=== PATIENT | female | born 1990 | race Caucasian/White ===

== ENCOUNTER 2017-07-30 18:53 | Emergency (ER) | payer SELFPAY ==
[~2017-07-30] VITALS: Wt 115.0 kg
[2017-07-30] MEDS ORDERED: ACETAMINOPHEN 325 MG TAB PO ONE (20:30)
[2017-07-30 20:47] LABS: BASOPHILS % 0.3 % (0.0-2.0); EOSINOPHILS # 0.1 10^3/ul (0.0-0.5); EOSINOPHILS % 0.9 % (0.0-7.0); HEMATOCRIT 34.6 % (37.0-47.0); HEMOGLOBIN 11.3 g/dl (12.0-16.0); LYMPHOCYTES % 15.6 % (15.0-51.0); MEAN CORPUSCULAR HEMOGLOBIN 26.5 pg (29.0-33.0); MEAN CORPUSCULAR HGB CONC 32.7 g/dl (32.0-37.0); MEAN PLATELET VOLUME 10.8 fl (7.4-10.4); MONOCYTE # 0.9 10^3/ul (0.3-0.9); NEUTROPHILS % 75.7 % (39.0-77.0); PLATELET COUNT 305 10^3/UL (140-415); RED BLOOD COUNT 4.27 10^6/ul (4.20-5.40); RED CELL DISTRIBUTION WIDTH 15.3 % (11.5-14.5); WHITE BLOOD COUNT 12.5 10^3/ul (4.8-10.8)
[2017-07-30 21:00] LABS: ADD UMIC YES; UR ASCORBIC ACID NEGATIVE (NEGATIVE); UR BILIRUBIN (Dip) NEGATIVE (NEGATIVE); UR BLOOD (Dip) NEGATIVE (NEGATIVE); UR CLARITY SLIGHTLY CLOUDY (CLEAR); UR COLOR YELLOW (YELLOW); UR GLUCOSE (Dip) NEGATIVE (NEGATIVE); UR KETONES (Dip) NEGATIVE (NEGATIVE); UR LEUKOCYTE ESTERASE (Dip) TRACE Leu/ul (NEGATIVE); UR MUCUS FEW /HPF (NONE SEEN); UR NITRITE (Dip) NEGATIVE (NEGATIVE); UR RBC 2 /HPF (0-5); UR SPECIFIC GRAVITY (Dip) 1.025 (1.003-1.030); UR SQUAMOUS EPITHELIAL CELL MODERATE /HPF (FEW); UR TOTAL PROTEIN (Dip) NEGATIVE (NEGATIVE); UR UROBILINOGEN (Dip) 1+ mg/dL (NEGATIVE)
--- NOTE | 2017-07-30 22:50 | RADRPT ---
PROCEDURE: US OB. CLINICAL INDICATION: 26 years of age, female. Abdominal pain. .. TECHNIQUE: Multiple sonographic images of the pelvis were obtained. Transabdominal imaging only w as performed. The images were reviewed on a PACS workstation. Image quality: Satisfactory. COMPARISON: No prior studies are available for comparison. FINDINGS: Villatoro : Number of fetuses: 1 GENERAL EVALUATION: Cardiac activity: Present. FHR 143 bpm Presentation: Cephalic/a variable Placenta: Placenta site: Posterior. Placenta grade 1. Negative for evidence of placenta previa. Amniotic fluid: Normal. Maximum vertical pocket 5 cm Cervix (transabdominal): Not evaluated DATING: LMP: March 20, 2017 AMINAH by dates: December 25, 2017 EGA by dates: 63-saht-7-day BIOMETRY: BPD = 4.7 cm , 20 weeks 2 days. HC = 16.5 cm , 19 weeks 2 days. AC = 14.8 cm , 20 weeks 1 day. FL = 3.3 cm , 20 weeks 3 days. Composite sonographic age: 20 weeks 0 days plus or minus 2 weeks Estimated due date by ultrasound measurements: December 17, 2017 EFW 336 grams that is greater than 97 percentile for gestational age of 18 weeks 6 days. ANATOMY: Not evaluated IMPRESSION: 1. Single living fetus in variable presentation. 2. Clinical gestation age of 18 weeks 6 days and clinical AMINAH December 25, 2017 are concordant with t he composite sonographic age within 8 days. 3. Estimated weight 336 grams that is greater than the 97 percentile for a gestational age of 18-week 6 days.. 4. Amniotic fluid volume is normal. 5. Posterior placenta grade 1. RPTAT: HCTS Physician Byron Date Time Electronically viewed and signed by Physician Byron on 07/30/2017 22:49 CS/
--- NOTE | 2017-07-30 23:16 | ERD ---
ER Documentation Chief Complaint Date/Time DATE: 07/30/17 TIME: 23:09 Chief Complaint Pelvic pain. Pt ?wks. Bleeding since the AM HPI This 26-year-old female presents to emergency department for abdominal cramping. Patient reports that she found out she was 2 days ago at a clinic, after taking 2 home tests. Patient now feels sharp left pelvic pain and pressure. Her last menstrual period is reported as February 2017, patient reports that she was on Depo-Provera which lasted until the end of June. At June she decided not to go back on Depo-Provera and has been using condoms. -00 Patient denies vaginal bleeding, discharge, nausea, or vomiting ROS All systems reviewed and are negative except as per history of present illness. Allergies Allergies: Coded Allergies: No Known Allergy (Unverified , 07/30/17) PMhx/Soc History of Surgery: No Anesthesia Reaction: No Hx Neurological Disorder: No Hx Respiratory Disorders: No Hx Cardiac Disorders: No Hx Psychiatric Problems: No Hx Miscellaneous Medical Probl: No Hx Alcohol Use: No Hx Substance Use: No Hx Tobacco Use: No Smoking Status: Never smoker Physical Exam Vitals Vital Signs Date Time Temp Pulse Resp B/P Pulse Ox O2 Delivery O2 Flow Rate FiO2 07/30/17 19:18 98.5 80 97 118/70 97 Physical Exam Const: Well-nourished well-appearing well-hydrated Obesefemale Head: Atraumatic Eyes: Normal Conjunctiva ENT: Normal External Ears, Nose and Mouth. Neck: Full range of motion..~ No meningismus. Resp: Clear to auscultation bilaterally Cardio: Regular rate and rhythm, no murmurs Abd: Obese, Large pannus, abdomen soft Skin: No petechiae or rashes Back: No midline or flank tenderness Ext: No cyanosis, or edema Neur: Awake and alert Psych: Normal Mood and Affect Result Diagram: 07/30/172037 Results 24 hrs Laboratory Tests Test 07/30/17 20:13 07/30/17 20:38 Urine Color YELLOW Urine Clarity SLIGHTLY CLOUDY Urine pH 6.0 Urine Specific [place] 1.025 Urine Ketones NEGATIVEmg/dL Urine Nitrite NEGATIVEmg/dL Urine Bilirubin NEGATIVEmg/dL Urine Urobilinogen 1+mg/dL Urine Leukocyte Esterase TRACELeu/ul Urine Microscopic RBC 2/HPF Urine Microscopic WBC 8/HPF Urine Squamous Epithelial Cells MODERATE/HPF Urine Calcium Oxalate Crystals MANY/HPF Urine Mucus FEW/HPF Urine Hemoglobin NEGATIVEmg/dL Urine Glucose NEGATIVEmg/dL Urine Total Protein NEGATIVEmg/dl White Blood Count 12.510^3/ul Red Blood Count 4.2710^6/ul Hemoglobin 11.3g/dl Hematocrit 34.6% Mean Corpuscular Volume 81.0fl Mean Corpuscular Hemoglobin 26.5pg Mean Corpuscular Hemoglobin Concent 32.7g/dl Red Cell Distribution Width 15.3% Platelet Count 84795^3/UL Mean Platelet Volume 10.8fl Neutrophils % 75.7% Lymphocytes % 15.6% Monocytes % 7.0% Eosinophils % 0.9% Basophils % 0.3% Nucleated Red Blood Cells % 0.0/100WBC Neutrophils # (Manual) 9.510^3/ul Lymphocytes # 2.010^3/ul Monocytes # 0.910^3/ul Eosinophils # 0.110^3/ul Basophils # 0.010^3/ul Nucleated Red Blood Cells # 0.010^3/ul Beta HCG, Quantitative 00190.0mIU/ml Current Medications Medications (Trade) Dose Ordered Sig/Asiya Route PRN Reason Start Time Stop Time Status Last Admin Dose Admin Acetaminophen (Tylenol Tab) 650 mg ONCE ONCE PO 07/30/17 20:30 07/30/17 20:31 DC 07/30/17 20:31 Interpretation text CBC shows no evidence of hemorrhage or infection patient has an elevated WBC which is not abnormal in . Mild anemia noted also an unremarkable finding. Chemistry shows no evidence of significant electrolyte abnormalities or renal insufficiency Procedures/MDM This pleasant 26-year-old female presents to emergency department for evaluation of . Patient reports that her last menstrual period was February 22 she was using Depo-Provera which completed its course in the ending of June and has been using condoms. Patient states that she took a home test which was positive and went to a clinic and was informed she was . Patient reports abdominal pain without bleeding or vaginal discharge. Diagnostic testing is unremarkable for infection or acute blood loss , chemistry unremarkable for electrolyte imbalance or renal insufficiency.Beta hCG quantitative 25079.0mIU/mlOB ultrasound impression from radiologist: Single living fetus in variable presentation to clinical gestational age of 18 weeks 6 days and clinical estimated due date December 25, 2017 are concordant with composite sonographic age within 8 days. Estimated weight is 336 g that is greater than the 97th percentile for gestational age of 18 weeks and 6 days. Amniotic fluid volume is normal. Posterior placenta grade 1. Plan to discharge patient home with gynecology follow-up, vitamins. Patient is stable with no new complaints during ER course, clinically there is no current evidence to suggest meningitis, sepsis, acute abdomen, acute coronary syndromes, pulmonary embolism or any other emergent condition appearing to require further evaluation or hospitalization. I feel the patient is stable for discharge at this time. I have discussed results, examination findings, the treatment plan with the patient and family present prior to discharge. Indications for emergent reevaluation, side effects of medication were also discussed. All questions were answered. Patient verbalizes understanding and agrees with plan of care. Departure Diagnosis: Primary Impression: Pelvic pain complicating Trimester: second trimester Qualified Code: O26.892 - Pelvic pain affecting in second trimester, antepartum CARLOS ENRIQUEMOSHE JUANODY Jul 30, 2017 23:16
[2017-07-30] MEDS ORDERED: PRENAT PO (23:21)
[2017-07-30 23:38] VITALS: BP 123/71; PULSE 82; RESP 16
== END 2017-07-30 23:39 | disposition home or self-care (01) ==
LOC: FTE 18:53
DX: O26.892 Other specified pregnancy related conditions, second trimester (principal); R10.2 Pelvic and perineal pain; Z3A.18 18 weeks gestation of pregnancy
CPT/HCPCS: 36415; 76801; 81001; 84702; 85025

== ENCOUNTER 2018-01-07 04:24 | Emergency (ER) | END 2018-01-07 07:34 | disposition left against medical advice (07) ==